=== PATIENT | male | born 2000 | race American Indian/Alaskan Native ===

== ENCOUNTER 2022-02-19 23:17 | Emergency (ER) | payer MEDICAID ==
[2022-02-19 23:36] VITALS: BP 123/82; PULSE 80
[2022-02-20 00:30] LABS: ESTIMATED GFR 134 mL/min (>60)
== END 2022-02-20 01:08 | disposition home or self-care (01) ==
LOC: JP.ED 23:17
DX: A08.4 Viral intestinal infection, unspecified (principal)
CPT/HCPCS: 36415; 80053; 80305-QW; 81001; 85025; 99282; 99284